=== PATIENT | male | born 1985 | race Caucasian/White ===

== ENCOUNTER 2016-11-17 20:53 | Emergency (ER) | payer MEDICAID ==
[~2016-11-17] VITALS: Ht 401.3 cm; Wt 76.0 kg
[~2016-11-17 20:53] MED LIST: DIAZ-90 PO; HYDR-3498 PO; IBUP800T25 PO
[2016-11-17 20:56] VITALS: Ht 401.3 cm; Wt 76.0 kg
[2016-11-17] MEDS ORDERED: AMO500 PO (21:40)
[2016-11-17] MEDS ORDERED: IBUP-1542 PO (21:42)
--- NOTE | 2016-11-17 21:49 | ERD ---
ER Documentation Chief Complaint Date/Time DATE: 11/17/16 TIME: 21:44 Chief Complaint l ear and eye pain for past week HPI Patient is a 31-year-old male who presents to the emergency department with left ear pain and eye pain 1 week. Patient states that he has pain behind his left eye as well as in his left sinuses. Patient does report pain in the frontal region of his head. Patient denies sudden onset, patient denies blurry vision. Patient reports increased pain when bending his head. Patient does report significant nasal rhinorrhea and congestion. Patient reports yellow thick secretions. Patient does also have a productive cough with yellow phlegm production. Patient reports traveling 2 weeks ago to [place]. Patient denies any chest pain, shortness of breath, nausea, vomiting, abdominal pain, fevers or chills. No sick contacts. ROS All systems reviewed and are negative except as per history of present illness. Medications Home Meds Active Scripts Ibuprofen* (Motrin*) 600 Mg Tab, 600 MG PO Q6, #30 TAB Prov:KAMARI DANIELS PA-C 11/17/16 Amoxicillin* (Amoxicillin*) 500 Mg Cap, 500 MG PO TID for 10 Days, CAP Prov:KAMARI DANIELS PA-C 11/17/16 Diazepam* (Valium*) 5 Mg Tablet, 5 MG PO Q8, #10 TAB Prov:GIL CASTILLO DO 06/20/15 Hydrocodone Bit-Acetaminophen* (Wheeler*) 5-325 Mg Tab, 1 TAB PO Q6 Y for PAIN, # 20 TAB Prov:GIL CASTILLO DO 06/20/15 Ibuprofen* (Motrin*) 800 Mg Tab, 800 MG PO Q6H Y for PAIN AND OR ELEVATED TEMP, #30 TAB Prov:GIL CASTILLO DO 06/20/15 Allergies Allergies: Coded Allergies: No Known Allergy (Unverified , 06/20/15) PMhx/Soc Hx Alcohol Use: No Hx Substance Use: No Hx Tobacco Use: No Physical Exam Vitals Vital Signs Date Time Temp Pulse Resp B/P Pulse Ox O2 Delivery O2 Flow Rate FiO2 11/17/16 20:56 97.8 86 18 142/86 97 Physical Exam GENERAL: Well-developed, well-nourished male. Appears in no acute distress. Speaking in full sentences HEAD: Normocephalic, atraumatic. No deformities or ecchymosis. EYE: Pupils equal, round, and reactive to light. EOMs intact. No conjunctival erythema. No eye discharge. ENT: External ear without any masses or tenderness. Auditory canals clear bilaterally. TM visualized bilaterally, non-erythematous, non-bulging. Nasal congestion noted. Tender to palpation of bilateral frontal and maxillary sinuses. Patient reports increased head pressure upon bending his head down. Oropharynx is pink without any tonsillar erythema or exudates. No uvula deviation. No kissing tonsils. NECK: Supple. No meningismus. Normal ROM of the neck. LUNG: Clear to auscultation bilaterally. No rhonchi, wheezing, rales or coarse breath sounds. HEART: Regular rate and rhythm. No murmurs, rubs or gallops. BACK: No midline tenderness. EXTREMITES: Equal pulses bilaterally. No peripheral clubbing, cyanosis or edema. No unilateral leg swelling. NEUROLOGIC: Alert and oriented to person, place and time. Moving all four extremities. 5/5 strength in all extremities. Normal speech. Steady gait. SKIN: Normal color. Warm and dry. No rashes or lesions. Results 24 hrs Current Medications Medications (Trade) Dose Ordered Sig/Cristian Route PRN Reason Start Time Stop Time Status Last Admin Dose Admin Ibuprofen (Motrin) 600 mg ONCE ONCE PO 11/17/16 22:00 11/17/16 22:01 UNV Procedures/MDM MEDICAL DECISION MAKING: This is a 31-year-old male who presents with with increased sinus pressure, left ear pain and nasal congestion x 1 week. Vital signs were reviewed. Patient was afebrile. Patient was not hypoxic. ENT exam revealed tenderness to palpation in the maxillary and frontal sinuses. Patient did report increased head pressure upon bending down. Given these findings, the patient's presentation is most consistent with sinusitis. I have a much lower clinical concern for pneumonia, meningitis, sinusitis, otitis externa, acute otitis media , strep pharyngitis, epiglottitis or peritonsillar abscess. PRESCRIPTIONS: Amoxicillin, ibuprofen DISCHARGE: At this time, patient is stable for discharge and outpatient management. Supportive therapies such as OTC throat lozenges, salt water gurgles, popsicles and jello discussed. I have instructed the patient to follow-up with his/her primary care physician in 1-2 days. I have instructed the patient to promptly return to the ER for any new or worsening symptoms including increased pain, swelling, fever, nausea, vomiting, weakness or difficulty breathing. The patient and/or family expressed understanding of and agreement with this plan. All questions were answered. Home care instructions were provided. Departure Diagnosis: Primary Impression: Sinusitis Sinusitis location: unspecified location Chronicity: acute Recurrence: not specified as recurrent Qualified Code: J01.90 - Acute sinusitis, recurrence not specified, unspecified location Condition: Stable Patient Instructions: Sinusitis, Abx Tx Referrals: [facility] YOU HAVE RECEIVED A MEDICAL SCREENING EXAM AND THE RESULTS INDICATE THAT YOU DO NOT HAVE A CONDITION THAT REQUIRES URGENT TREATMENT IN THE EMERGENCY DEPARTMENT. FURTHER EVALUATION AND TREATMENT OF YOUR CONDITION CAN WAIT UNTIL YOU ARE SEEN IN YOUR DOCTORS OFFICE WITHIN THE NEXT 1-2 DAYS. IT IS YOUR RESPONSIBILITY TO MAKE AN APPOINTMENT FOR FOLOW-UP CARE. IF YOU HAVE A PRIMARY DOCTOR --you should call your primary doctor and schedule an appointment IF YOU DO NOT HAVE A PRIMARY DOCTOR YOU CAN CALL OUR PHYSICIAN REFERRAL HOTLINE AT IF YOU CAN NOT AFFORD TO SEE A PHYSICIAN YOU CAN CHOSE FROM THE FOLLOWING [facility] [address] [facility]. [facility] [address] [facility]. [facility] [address] [facility] [facility] [address] [facility] [facility] [address] [facility]. [facility]. [address] [facility] YOU HAVE RECEIVED A MEDICAL SCREENING EXAM AND THE RESULTS INDICATE THAT YOU DO NOT HAVE A CONDITION THAT REQUIRES URGENT TREATMENT IN THE EMERGENCY DEPARTMENT. FURTHER EVALUATION AND TREATMENT OF YOUR CONDITION CAN WAIT UNTIL YOU ARE SEEN IN YOUR DOCTORS OFFICE WITHIN THE NEXT 1-2 DAYS. IT IS YOUR RESPONSIBILITY TO MAKE AN APPOINTMENT FOR FOLOW-UP CARE. IF YOU HAVE A PRIMARY DOCTOR --you should call your primary doctor and schedule and appointment IF YOU DO NOT HAVE A PRIMARY DOCTOR YOU CAN CALL OUR PHYSICIAN REFERRAL HOTLINE AT . IF YOU CAN NOT AFFORD TO SEE A PHYSICIAN YOU CAN CHOSE FROM THE FOLLOWING [facility] INSTITUTIONS: [facility] [address] [place] [address] [facility] [address] [place] [address] [facility] + [facility] [address] [place] [address] Additional Instructions: Call your primary care doctor TOMORROW for an appointment during the next 1-2 days.See the doctor sooner or return here if your condition worsens before your appointment time. KAMARI DANIELS PA-C November 17, 2016 21:49
[2016-11-17] MEDS ORDERED: IBUPROFEN 600 MG TAB PO ONE (22:00)
== END 2016-11-17 22:00 | disposition home or self-care (01) ==
LOC: FTE 20:53
DX: J01.90 Acute sinusitis, unspecified (principal)
CPT/HCPCS: 99283

== ENCOUNTER 2018-07-22 18:48 | Emergency (ER) | payer SELFPAY ==
[~2018-07-22 18:48] MED LIST changes: +AMOX500C2 PO; -DIAZ-90 PO; +DIAZ5TAB PO; +IBUP-1542 PO; -IBUP800T25 PO; +IBUP800T48 PO
== END 2018-07-22 18:55 | disposition left against medical advice (07) ==
LOC: E/R 18:48
DX: Z53.21 Procedure and treatment not carried out due to patient leaving prior to being seen by health care provider (principal)